=== PATIENT | female | born 1965 | race Caucasian/White ===

== ENCOUNTER 2018-06-06 13:35 | Outpatient (CLI) | payer OTHER ==
[~2018-06-06 13:35] MED LIST: CYTOMEL25 MCG PO; KETO10TA2 PO; ORPH100T PO; [UNRECOGNIZED DRUG - OTHER]
== END 2018-06-06 14:25 | disposition home or self-care (01) ==
LOC: SONOGRAMA 13:35
DX: E04.1 Nontoxic single thyroid nodule (principal); M54.5 Low back pain; M54.6 Pain in thoracic spine; M54.2 Cervicalgia